=== PATIENT | female | born 1950 | race Caucasian/White ===

== ENCOUNTER 2016-03-25 11:32 | Day surgery (SDC) | payer OTHER ==
[2016-03-25] MEDS ORDERED: INSULIN HUMAN REGULAR 1,000 UNITS/10 ML VIAL SQ PRN (12:45)
[2016-03-25] MEDS ORDERED: LACTATED RINGER'S 1000 ML IV SCH (12:45)
[2016-03-25] MEDS ORDERED: SODIUM CHLORID 0.9% 500 ML IV SCH (12:45)
[2016-03-25] MEDS ORDERED: METOPROLOL TARTRATE 25 MG TAB PO PRN (12:45)
[2016-03-25] MEDS ORDERED: PROPOFOL 200 MG/20 ML AMP IV ONE (13:26)
[2016-03-25] MEDS ORDERED: LAMO100 PO (14:31)
[2016-03-25] MEDS ORDERED: HYDR500C PO (14:31)
[2016-03-25] MEDS ORDERED: WARF-18 PO ×2 (14:31)
[2016-03-25] MEDS ORDERED: ASPI81TA11 PO (14:31)
[2016-03-25] MEDS ORDERED: FOLI800T PO (14:31)
--- NOTE | 2016-03-28 11:40 | ETE ---
Study Study Date:03/25/2016 STUDY CONCLUSIONS SUMMARY - Atrial septum: There was a patent foramen ovale. Doppler and agitated saline contrast study showed a moderate qdtdo-qy-cria shunt through a patent foramen ovale, in the baseline state. - Left ventricle: The cavity size was normal. Wall thickness was normal. Systolic function was normal. Wall motion was normal; there were no regional wall motion abnormalities. - Aortic valve: No evidence of vegetation. - Mitral valve: No evidence of vegetation. - Left atrium: No evidence of thrombus in the atrial cavity or appendage. - Tricuspid valve: No evidence of vegetation. - Pulmonic valve: No evidence of vegetation. If LV function is below 40, please consider prescribing an ACEI or ARB or document rationale for non-use. PROCEDURE DATA Consent: The risks, benefits, and alternatives to the procedure were explained to the patient and informed consent was obtained. Procedure: Initial setup. The patient was brought to the laboratory in the fasting state. Intravenous access was obtained. Surface ECG leads and pulse oximetric signals were monitored. Sedation. Deep sedation was administered by anesthesiology. Transesophageal echocardiography. A transesophageal probe was inserted by the attending meteorological aide. Image quality was good. Study completion: All IVs inserted during the procedure were removed. The patient tolerated the procedure well. There were no complications. Transesophageal echocardiography. 2D, complete spectral Doppler, and color Doppler. CARDIAC ANATOMY LEFT VENTRICLE: The cavity size was normal. Wall thickness was normal. Systolic function was normal. Wall motion was normal; there were no regional wall motion abnormalities. AORTIC VALVE: Structurally normal valve. Trileaflet; normal thickness leaflets. Cusp separation was normal. No evidence of vegetation. Doppler: No significant regurgitation. Aorta: - There was no atheroma. There was no evidence for dissection. Aortic root: The aortic root was not dilated. Ascending aorta: The ascending aorta was normal in size. Aortic arch: The aortic arch was normal in size. Descending aorta: The descending aorta was normal in size. MITRAL VALVE: Structurally normal valve. Leaflet separation was normal. No evidence of vegetation. Doppler: Trace regurgitation. LEFT ATRIUM: The atrium was normal in size. No evidence of thrombus in the atrial cavity or appendage. The appendage was morphologically a left appendage, multilobulated, and of normal size. Emptying velocity was normal. ATRIAL SEPTUM: The interatrial septum was hypermobile. There was a patent foramen ovale. Doppler and agitated saline contrast study showed a moderate [id number]-rykc shunt through a patent foramen ovale, in the baseline state. RIGHT VENTRICLE: The cavity size was normal. Wall thickness was normal. Systolic function was normal. PULMONIC VALVE: Structurally normal valve. No evidence of vegetation. TRICUSPID VALVE: Structurally normal valve. Leaflet separation was normal. No evidence of vegetation. Doppler: Trace regurgitation. PULMONARY ARTERY: The main pulmonary artery was normal-sized. RIGHT ATRIUM: The atrium was normal in size. PERICARDIUM: There was no pericardial effusion. Prepared and signed by Zachary Elliott [id number]
--- NOTE | 2016-03-28 23:53 | EKG ---
Date Performed: 03/25/2016 Time Performed: 11:51:34 PTAGE: 66 years EKG: Sinus bradycardia Normal ECG except for rate NO PREVIOUS TRACING DOCTOR: Carl Medrano Interpretating Date/Time 03/28/2016 23:52:30
== END 2016-03-25 14:15 | disposition home or self-care (01) ==
LOC: HDOC 11:32 → HDIC 11:33 → HDOC 14:15
PROVIDERS: ATTEND Nuclear Medicine Nuclear Cardiology
DX: Q21.1 Atrial septal defect (principal)
CPT/HCPCS: 93005; 93312; 93320; 93325